=== PATIENT | female | born 1955 | race Caucasian/White ===

== ENCOUNTER 2021-04-11 12:05 | Outpatient (CLI) | payer MEDICARE, OTHER, SELFPAY ==
[2021-04-11 12:21] VITALS: BP 195/93; PULSE 98; RESP 16; TEMP 37.1; O2SAT 100; BMI 29.7
[2021-04-11] MEDS: 0.9% Saline Lock 10 ML Syringe IV (12:26)
[2021-04-11 13:06] VITALS: BP 171/89; PULSE 87; RESP 16; TEMP 37.1; O2SAT 97
[2021-04-11 13:59] VITALS: BP 180/83; PULSE 88; RESP 16; TEMP 36.9; O2SAT 96
== END 2021-04-11 14:06 | disposition home or self-care (01) ==
LOC: MS3OUT 12:06 → MS3 12:06
PROVIDERS: Referring Provider Nurse Practitioner Adult Health; Visit Provider Nurse Practitioner Adult Health
DX: Z23 Encounter for immunization (principal); U07.1 COVID-19
CPT/HCPCS: J7050; M0245; Q0245; A4216